=== PATIENT | male | born 1995 | race Caucasian/White ===

== ENCOUNTER → 2020-03-10 15:58 | Outpatient (CLI) | payer BC, SELFPAY ==
[2020-03-12 10:17] LABS: Covid-19 Nasal PCR Sendout UK Not Detected
== END ==
PROVIDERS: PCP Family Medicine; Visit Provider Family Medicine
DX: Z03.818 Encounter for observation for suspected exposure to other biological agents ruled out (principal)
CPT/HCPCS: U0003